=== PATIENT | male | born 1995 | race Caucasian/White ===

== ENCOUNTER 2017-01-21 08:19 | Emergency (ER) | payer SELFPAY ==
[~2017-01-21] VITALS: Ht 157.5 cm; Wt 86.9 kg
[2017-01-21 08:28] VITALS: Ht 157.5 cm; Wt 86.9 kg
[2017-01-21] MEDS ORDERED: CEFTRIAXONE 250 MG INJ IM ONE (09:00)
[2017-01-21] MEDS ORDERED: LIDOCAINE 1% (MDV) 20 ML INJ SC ONE (09:00)
[2017-01-21] MEDS ORDERED: AZITHROMYCIN 250 MG TAB PO ONE (09:00)
[2017-01-21 09:08] LABS: URINE BLOOD (Dip) POC Negative (NEGATIVE)
[2017-01-21] MEDS ORDERED: DOCU-144 PO (09:13)
[2017-01-21] MEDS ORDERED: HYDR25SU23 PR (09:13)
--- NOTE | 2017-01-21 09:50 | ERD ---
DATE OF SERVICE: 01/21/2017 HISTORY OF PRESENT ILLNESS: The patient is a 21-year-old male complaining of abdominal pain. Patisaeid nt also states that he had some blood in his stool this morning and has dysuria since this morning. The patient states that when he had a bowel movement he noticed some blood in the toilet and some b lood on the paper. It was bright red. He denies any abdominal pain on evaluation. He has not had a ny vomiting, no fevers, had no purulence from his rectum. He has never had this before. Has no fam betsy history of colorectal cancer. He is sexually active with no new sexual partners and no history of STDs. He denies any penile discharge or testicular pain. PAST MEDICAL HISTORY: Denies any medical problems. ALLERGIES: DENIES ALLERGIES TO MEDICATION. PAST SURGICAL HISTORY: Denies SOCIAL HISTORY: Smokes 3 cigarettes a day. REVIEW OF SYSTEMS: A 12-point review of systems was done. Refer to HPI for positives, all other sy stems negative. PHYSICAL EXAMINATION: VITAL SIGNS: Temperature is 98.6, pulse 58, blood pressure is 142/61, respiratory 18, O2 saturation 97% on room air. Pain intensity of 4/10. GENERAL: The patient is well-appearing, well-nourished, no acute distress. GENITOURINARY: There is no erythema or swelling noted to the testicles. The patient is uncircumcis ed. There are no changes noted to the penile shaft. No inguinal lymphadenopathy, no tenderness to palpation of the testicles. RECTAL EXAM: There are no external hemorrhoids appreciated on exam. The patient has no tenderness to palpation around the rectum. There is no erythema, no purulence. HEENT: Atraumatic. Conjunctivae are pink. Pupils equal, round, and reactive to light. There is no s cleral icterus. Tympanic membranes clear bilaterally. Oropharynx clear. No nystagmus or photophobia . CHEST: Clear to auscultation bilaterally. There are no rales, wheezes or rhonchi. HEART: Regular rate and rhythm. No murmurs, clicks, rubs or gallops. No S3 or S4. ABDOMEN: Soft, nontender and nondistended. Good bowel sounds. No rebound or guarding. No gross kyle tonitis. No gross organomegaly or masses. No Bob sign or McBurney point tenderness. EMERGENCY ROOM COURSE: The patient had a urine dip checked in the ER. Patient's urine showed negat shilpa leukocytes, negative nitrites, negative blood, negative ketones, negative glucose, negative prot ein. The patient was also treated for possible STD, was given 250 IM injection of Rocephin and a gr am of azithromycin. Urine was sent out for culture and GC chlamydia screening. DIAGNOSES: 1. Rectal bleeding. 2. Dysuria. MEDICAL DECISION MAKING: I have low suspicion for perirectal or rectal abscess. Low suspicion for rectal hemorrhage. Low suspicion for diverticulitis or abdominal emergency at this time. Patient's exam is nonconcerning. I did not feel that there was indication for blood work or imaging as patie nt's vitals are stable. Patient's exam is nontoxic and patient likely had internal hemorrhoid which ruptured with bowel movement, given that he had bright red blood, one time with bowel movement reneic h was also on paper. I have low suspicion for urinary tract infection, nephrolithiasis or septic st one as patient's urine is within normal limits and does not show blood. I have low suspicion for acu te kidney failure exam is nonconcerning. The patient will be discharged and recommended to follow u p with urologist. DISCHARGE: The patient is discharged stable. Patient is given prescription for Anusol and Colace a nd told to follow up with primary care within 1 to 2 days for reevaluation. The patient was told if symptoms progress or worsen to return to the ER. All other questions answered at time of discharge . Discharge summary given at the time of departure. Patient understood and complied with plan. Dictated By: LUAN MONTENEGRO for YONATAN REYEZ/PABLITO Conf#: [id number] DID#: [id number]
== END 2017-01-21 09:24 | disposition home or self-care (01) ==
LOC: FTE 08:19
DX: K62.5 Hemorrhage of anus and rectum (principal); F17.210 Nicotine dependence, cigarettes, uncomplicated
CPT/HCPCS: 81003; 87086; 87591; 96372; 99284; J0696